=== PATIENT | female | born 1995 | race African-American/Black ===

== ENCOUNTER 2018-05-28 08:46 | Emergency (ER) | payer OTHER ==
[~2018-05-28] VITALS: Ht 157.5 cm; Wt 90.7 kg
[~2018-05-28 08:46] MED LIST: MACROBID 100 M100 M1 PO
[2018-05-28 08:50] VITALS: BP 172/96
[2018-05-28] MEDS ORDERED: HYDROCODONE-AP1 EAC6 PO (09:04)
[2018-05-28] MEDS ORDERED: CLEOCIN HCL150 MG PO (09:04)
[2018-05-28] MEDS ORDERED: FLEXERIL PO (09:04)
== END 2018-05-28 09:17 | disposition home or self-care (01) ==
LOC: M.ERS 08:46
DX: K02.9 Dental caries, unspecified (principal); M26.602 Left temporomandibular joint disorder, unspecified; F31.9 Bipolar disorder, unspecified; Z88.0 Allergy status to penicillin; Z88.8 Allergy status to other drugs, medicaments and biological substances

== ENCOUNTER 2018-08-09 21:00 | Emergency (ER) | payer OTHER ==
[~2018-08-09] VITALS: Ht 157.5 cm; Wt 93.0 kg
[~2018-08-09 21:00] MED LIST changes: +CLEOCIN HCL150 MG PO; +FLEXERIL PO; +HYDROCODONE-AP1 EAC6 PO
[2018-08-09] MEDS ORDERED: IBUPROFEN 800800 M1 PO (21:09)
[2018-08-09] MEDS ORDERED: KEFLEX500 M1 PO (21:09)
[2018-08-09] MEDS ORDERED: LIDOCAINE VISC100 ML SWISH&SPIT (21:09)
[2018-08-09] MEDS ORDERED: ACETAMINOPHEN-1 EAC1 PO (21:10)
[2018-08-09 21:27] VITALS: BP 141/87
== END 2018-08-09 21:34 | disposition home or self-care (01) ==
LOC: M.ERS 21:00
DX: K02.9 Dental caries, unspecified (principal); F17.200 Nicotine dependence, unspecified, uncomplicated; F31.9 Bipolar disorder, unspecified; Z88.8 Allergy status to other drugs, medicaments and biological substances; Z88.0 Allergy status to penicillin

== ENCOUNTER 2018-09-14 10:58 | Emergency (ER) | payer OTHER ==
[~2018-09-14] VITALS: Ht 157.5 cm; Wt 90.7 kg
[~2018-09-14 10:58] MED LIST changes: +ACETAMINOPHEN-1 EAC1 PO; +IBUPROFEN 800800 M1 PO; +KEFLEX500 M1 PO; +LIDOCAINE VISC100 ML SWISH&SPIT
[2018-09-14] MEDS ORDERED: ACETAMINOPHEN-1 EAC1 PO (11:17)
[2018-09-14] MEDS ORDERED: CLEOCIN HCL150 MG PO (11:17)
[2018-09-14] MEDS ORDERED: NAPROSYN500 MG PO (11:17)
[2018-09-14 11:38] VITALS: BP 96/76
== END 2018-09-14 11:37 | disposition home or self-care (01) ==
LOC: M.ERS 10:58
DX: K02.9 Dental caries, unspecified (principal); F17.210 Nicotine dependence, cigarettes, uncomplicated; F31.9 Bipolar disorder, unspecified; Z88.8 Allergy status to other drugs, medicaments and biological substances; Z88.0 Allergy status to penicillin

== ENCOUNTER 2018-10-14 00:19 | Emergency (ER) | payer OTHER ==
[~2018-10-14] VITALS: Ht 157.5 cm; Wt 95.3 kg
[~2018-10-14 00:19] MED LIST changes: +NAPROSYN500 MG PO
[2018-10-14 00:26] VITALS: BP 149/86
[2018-10-14] MEDS ORDERED: ULTRAM 50MG TAB50 MG PO (00:32)
[2018-10-14] MEDS ORDERED: KEFLEX500 M1 PO (00:32)
== END 2018-10-14 00:42 | disposition home or self-care (01) ==
LOC: M.ERS 00:19
DX: K02.9 Dental caries, unspecified (principal); F31.9 Bipolar disorder, unspecified; Z88.8 Allergy status to other drugs, medicaments and biological substances; Z88.0 Allergy status to penicillin

== ENCOUNTER 2018-10-16 16:53 | Emergency (ER) | payer OTHER ==
[~2018-10-16] VITALS: Ht 157.5 cm; Wt 95.3 kg
[~2018-10-16 16:53] MED LIST changes: +ULTRAM 50MG TAB50 MG PO
[2018-10-16] MEDS ORDERED: NORCO 5-325 TA1 EAC1 PO (17:40)
[2018-10-16] MEDS ORDERED: IBUPROFEN 600600 M1 PO (17:40)
[2018-10-16] MEDS ORDERED: LIDOCAINE VISC100 ML SWISH&SPIT (17:40)
[2018-10-16 17:52] VITALS: BP 146/91
== END 2018-10-16 17:47 | disposition home or self-care (01) ==
LOC: M.ERS 16:53
DX: K04.7 Periapical abscess without sinus (principal); F31.9 Bipolar disorder, unspecified; Z88.0 Allergy status to penicillin; Z88.6 Allergy status to analgesic agent; Z88.8 Allergy status to other drugs, medicaments and biological substances; F17.210 Nicotine dependence, cigarettes, uncomplicated